=== PATIENT | male | born 1950 | race Two or more races ===

== ENCOUNTER 2017-10-15 21:48 | Inpatient (IN) | payer OTHER ==
[2017-10-15 22:07] VITALS: BMI 22.9
[2017-10-15] MEDS ORDERED: ACETAMINOPHEN 1000 MG/100 ML VIAL (NON FORMULARY) IVPB ONE (22:32)
--- NOTE | 2017-10-15 22:35 | PDOC ---
Attending Attestation - Resident Resident Name: FideliaNiesha - ED Attending Attestation I have performed the following: I have examined & evaluated the patient, The case was reviewed & discussed with the resident, I agree w/resident's findings & plan - HPI HPI: 10/15/17 22:34 Pt slipped and fell on the ice. Seems to have broken his hip. No head injury. - Physicial Exam PE: 10/15/17 22:34 Agree with resident exam. Pt's left leg is shortened and externally rotated. - Medical Decision Making 10/15/17 22:35 Pt will have pre-op workup and he will be admitted to med surg and ortho will be notified.
--- NOTE | 2017-10-15 22:39 | PDOC ---
History of Present Illness - General History Source: Patient Exam Limitations: No Limitations - History of Present Illness Initial Comments: This is a 67 YOM with h/o heavy alcohol use who was BIBA s/p GLF now with left hip pain. The patient states that he was attempting to walk to his car, slipped on ice, twisted his left leg, and fell onto his left knee and hip. He did not hit his head or lose consciousness, but he was unable to pick himself up after the fall. 911 was called to help him up and bring him to the ED, and they splinted his left knee in the process. The patient now states that he only has pain in the left lateral him (points) when he tries to move the leg. He was drinking alcohol shortly prior to the fall. He took Motrin this morning. He last ate a meal early this afternoon, takes no blood thinning medications, and has never had anesthesia or surgery before in his life. He denies any chest pain , palpitations, SOB, or dizziness preceding or subsequent to the fall. <Niesha Mistry - Last Filed: 10/15/17 22:33> <Sonal Palacios - Last Filed: 10/16/17 01:41> - General Chief Complaint: Injury Stated Complaint: FALL Time Seen by Provider: 10/15/17 22:19 Past History - Suicide/Smoking/Psychosocial Hx Smoking History: Unknown if ever smoked Information on smoking cessation initiated: No Hx Alcohol Use: No Drug/Substance Use Hx: No <MistryNiesha alves - Last Filed: 10/15/17 22:33> <Sonal Palacios - Last Filed: 10/16/17 01:41> - Past Medical History Allergies/Adverse Reactions: Allergies Allergy/AdvReac Type Severity Reaction Status Date / Time No Known Allergies Allergy Verified 10/15/17 23:30 Home Medications: Ambulatory Orders NK [No Known Home Medication] 10/15/17 Review of Systems - Review of Systems Able to Perform ROS?: Yes Constitutional: No: Chills, Fever, Unexplained wgt Loss HEENTM: No: Nose Congestion, Throat Pain Respiratory: No: Cough, Shortness of Breath Cardiac (ROS): No: Chest Pain, Palpitations, Syncope ABD/GI: No: Constipated, Diarrhea, Nausea, Vomiting : No: Burning, Dysuria Musculoskeletal: Yes: Other (left hip pain). No: Back Pain, Neck Pain Integumentary: No: Bruising, Rash Neurological: No: Headache, Numbness, Tingling, Weakness, Dizziness Endocrine: No: Unexplained Weight Gain, Unexplained Weight Loss <Niesha Mistry - Last Filed: 10/15/17 22:33> *Physical Exam - Vital Signs Last Vital Signs Temp Pulse Resp BP Pulse Ox 97.8 F 90 14 110/90 97 10/15/17 22:02 10/15/17 22:02 10/15/17 22:02 10/15/17 22:02 10/15/17 22:02 - Physical Exam General Appearance: Yes: Nourished, Appropriately Dressed, Other (pleasant older male in no distress, appears comfortable despite being in a LLE splint and with shortening and marked external rotation of the left leg, positive sense of humor sign, answers questions appropriately). No: Apparent Distress HEENT: positive: EOMI, GARRY, Normal Voice, Hearing Grossly Normal. negative: Scleral Icterus (R), Scleral Icterus (L), Nasal Congestion Neck: positive: Trachea midline, Supple. negative: Tender, Rigid Respiratory/Chest: positive: Lungs Clear, Normal Breath Sounds. negative: Respiratory Distress, Labored Respiration, Crackles, Rhonchi, Stridor, Wheezing Cardiovascular: positive: Regular Rhythm, Regular Rate. negative: Edema, Murmur Vascular Pulses: Dorsalis-Pedis (R): 2+, Doralis-Pedis (L): 2+ Gastrointestinal/Abdominal: positive: Normal Bowel Sounds, Flat, Soft. negative : Tender, Organomegaly, Pulsatile Mass, Guarding Musculoskeletal: positive: Normal Inspection. negative: Decreased Range of Motion, Vertebral Tenderness Extremity: positive: Normal Capillary Refill, Normal Inspection, Normal Range of Motion. negative: Tender, Cyanosis Integumentary: positive: Normal Color, Dry, Warm. negative: Erythema, Rash, Bruising Neurologic: positive: adjudication specialist II-XII NML intact (grossly), Fully Oriented, Alert, Normal Mood/Affect, Normal Response, Motor Strength 5/5, Finger to Nose (normal) . negative: EOM Palsy, Facial Droop, Numbness, Sensory Deficit, Confused, Disoriented <Niesha Mistry - Last Filed: 10/15/17 22:33> - Vital Signs Last Vital Signs Temp Pulse Resp BP Pulse Ox 97.8 F 90 14 110/90 97 10/15/17 22:02 10/15/17 22:02 10/15/17 22:02 10/15/17 22:02 10/15/17 22:02 <Sonal Palacios - Last Filed: 10/16/17 01:41> ED Treatment Course - RADIOLOGY Radiology Studies Ordered: Category Date Time Status CHEST X-RAY PORTABLE* [RAD] Stat Radiology 10/15/17 22:32 Ordered HIP & PELVIS-LEFT [RAD] Stat Radiology 10/15/17 22:32 Ordered KNEE 3 POS-LEFT [RAD] Stat Radiology 10/15/17 22:32 Ordered <Niesha Mistyr - Last Filed: 10/15/17 22:33> - LABORATORY CBC & Chemistry Diagram: 10/15/17 23:21 10/15/17 23:21 - ADDITIONAL ORDERS Additional order review: Laboratory Results 10/15/17 10/15/17 10/15/17 23:21 23:21 23:21 PT with INR INR PTT (Actin FS) Sodium 140 Potassium 4.0 Chloride 101 Carbon Dioxide 25 Anion Gap 14 BUN 7 Creatinine 0.9 Creat Clearance w eGFR > 60 Random Glucose 112 H Calcium 9.2 Phosphorus 2.8 Magnesium 2.0 Total Bilirubin 0.3 AST 23 ALT 16 Alkaline Phosphatase 87 Total Protein 7.8 Albumin 3.3 L Alcohol, Quantitative 227.7 H* Blood Type O POSITIVE Antibody Screen Negative 10/15/17 23:21 PT with INR 10.70 INR 0.95 PTT (Actin FS) 26.8 L Sodium Potassium Chloride Carbon Dioxide Anion Gap BUN Creatinine Creat Clearance w eGFR Random Glucose Calcium Phosphorus Magnesium Total Bilirubin AST ALT Alkaline Phosphatase Total Protein Albumin Alcohol, Quantitative Blood Type Antibody Screen 10/15/17 23:21 RBC 3.83 L MCV 103.8 H MCHC 33.0 RDW 14.2 MPV 8.0 Neutrophils % 75.4 Lymphocytes % 15.1 Monocytes % 7.0 Eosinophils % 1.5 Basophils % 1.0 <Sonal Palacios - Last Filed: 10/16/17 01:41> Medical Decision Making - Medical Decision Making 67 YOM with unremarkable PM p/w left hip pain s/p GLF. On exam VS wnl, appears comfortable, pelvis stable but mild ttp left lateral hip , LLE short/externally rotated. DDX IBNLT hip fracture/dislocation, pelvic fracture, knee fracture, contusion, sprain/strain, etc. Ordered is Ofirmev, IVF, CBCD, CMP, Mg, Phos, coags, TS, EKG, CXR, hip/pelvic XR , knee XR. <Niesha Mistry - Last Filed: 10/15/17 22:33> - Medical Decision Making 10/16/17 01:03 Pt fell on the ice; now with proximal femur fracture; Ortho was paged. No response at this time. 10/16/17 01:[address] Gómez who is aware of the spiral fracture of the proximal femur. <Sonal Palacios - Last Filed: 10/16/17 01:41> *DC/Admit/Observation/Transfer <Niesha Mistry - Last Filed: 10/15/17 22:33> - Discharge Dispostion Admit: Yes <Sonal Palacios - Last Filed: 10/16/17 01:41> Diagnosis at time of Disposition: Fracture, proximal femur - Discharge Dispostion Condition at time of disposition: Poor
[2017-10-15] MEDS ORDERED: SODIUM CHLORIDE 0.9% 1000 ML INFUS.BAG IV ONE (22:44)
[2017-10-15 23:30] LABS: EOS % 1.5 % (0-4.5); HEMATOCRIT 39.8 % (35.4-49); HEMOGLOBIN 13.1 GM/dL (11.7-16.9); LYMPH % 15.1 % (8-40); MCH 34.3 pg (25.7-33.7); MEAN CELL VOLUME 103.8 fl (80-96); NEUT % 75.4 % (42.8-82.8); PLATELET COUNT 317 K/MM3 (134-434); RBC 3.83 M/mm3 (4.00-5.60); RDW 14.2 % (11.9-15.9); WHITE BLOOD COUNT 7.8 K/mm3 (4.0-10.0)
[2017-10-15 23:43] LABS: INR 0.95 (0.82-1.09); PROTHROMBIN TIME (PATIENT) 10.7 SEC (9.98-11.88)
[2017-10-15 23:46] LABS: ACTIVATED PTT 26.8 SECONDS (26.9-34.4)
[2017-10-15 23:56] LABS: ALBUMIN 3.3 g/dl (3.4-5.0); ALK PHOS 87 U/L (45-117); ANION GAP 14 (8-16); BILIRUBIN,TOTAL 0.3 mg/dL (0.2-1.0); BLOOD UREA NITROGEN 7 mg/dL (7-18); CALCIUM 9.2 mg/dL (8.5-10.1); CHLORIDE 101 mmol/L (98-107); CO2 25 mmol/L (21-32); CREATININE 0.9 mg/dL (0.7-1.3); GLUCOSE,RANDOM 112 mg/dL (74-106); PHOSPHOROUS 2.8 mg/dL (2.5-4.9); SGPT/ALT 16 U/L (12-78); SODIUM 140 mmol/L (136-145); TOT PROT 7.8 g/dl (6.4-8.2)
[2017-10-16 00:02] LABS: SGOT/AST 23 U/L (15-37)
[2017-10-16] MEDS ORDERED: ACETAMINOPHEN 1000 MG/100 ML VIAL (NON FORMULARY) IVPB PRN ×2 (01:33→11:54)
--- NOTE | 2017-10-16 01:51 | HP ---
CHIEF COMPLAINT: fall PCP: HISTORY OF PRESENT ILLNESS: 67M w/ hx of gout and alcohol abuse who presents s/p mechanical fall. Pt reports that he was in his USOH until this evening when he was walking to his car from his house, and he slipped on ice, landing on his left side. He states that he hit his left hip, but not his knee or head. He denies LOC. He felt significant pain, could not stand up himself, and so his friends called for an ambulance. Pt states that right now, his leg only hurts when he moves it. Pt endorses drinking 8 shots of liquor earlier in the day, which he reports is his usual amount of daily alcohol. He denies feeling drunk or unsteady at the time of the fall. He denies fevers, chills, chest pain, headache, shortness of breath , abdominal pain, nausea, emesis, diarrhea, constipation, dysuria, numbness or tingling or weakness in his left foot. ER course was notable for: (1) physical exam (2) imaging Recent Travel: denies PAST MEDICAL HISTORY: gout PAST SURGICAL HISTORY: denies Social History: Smoking: quit 4 years ago, used to smoke 1.5 ppd x 44 years Alcohol: 7-8 shots of liquor every day for many years Drugs: denies Family History: non-contributory Allergies No Known Allergies Allergy (Verified 10/15/17 23:30) HOME MEDICATIONS: Home Medications Medication Instructions Recorded NK [No Known Home Medication] 10/15/17 REVIEW OF SYSTEMS CONSTITUTIONAL: Absent: fever, chills, diaphoresis, generalized weakness, malaise, loss of appetite, weight change HEENT: Absent: rhinorrhea, nasal congestion, throat pain, throat swelling, difficulty swallowing, mouth swelling, ear pain, eye pain, visual changes CARDIOVASCULAR: Absent: chest pain, syncope, palpitations, irregular heart rate, lightheadedness , peripheral edema RESPIRATORY: Absent: cough, shortness of breath, dyspnea with exertion, orthopnea, wheezing, stridor, hemoptysis GASTROINTESTINAL: Absent: abdominal pain, abdominal distension, nausea, vomiting, diarrhea, constipation, melena, hematochezia GENITOURINARY: Absent: dysuria, frequency, urgency, hesitancy, hematuria, flank pain, genital pain MUSCULOSKELETAL: Absent: back pain, neck pain present: left hip pain SKIN: Absent: rash, itching, pallor HEMATOLOGIC/IMMUNOLOGIC: Absent: easy bleeding, easy bruising, lymphadenopathy, frequent infections ENDOCRINE: Absent: unexplained weight gain, unexplained weight loss, heat intolerance, cold intolerance NEUROLOGIC: Absent: headache, focal weakness or paresthesias, dizziness, unsteady gait, seizure, mental status changes, bladder or bowel incontinence PSYCHIATRIC: Absent: anxiety, depression, suicidal or homicidal ideation, hallucinations. PHYSICAL EXAMINATION Vital Signs - 24 hr 10/15/17 22:02 Temperature 97.8 F Pulse Rate 90 Respiratory 14 Rate Blood Pressure 110/90 O2 Sat by Pulse 97 Oximetry (%) GENERAL: elderly male, awake, alert, and fully oriented, in no acute distress. HEENT: NC, AT NECK: Normal range of motion, supple without lymphadenopathy, JVD, or masses. LUNGS: Breath sounds equal, clear to auscultation bilaterally. No wheezes, and no crackles. No accessory muscle use. HEART: Regular rate and rhythm, normal S1 and S2 without murmur, rub or gallop. distal pulses in left leg intact. ABDOMEN: Soft, nontender, not distended, normoactive bowel sounds, no guarding, no rebound, no masses. No hepatomegaly or splenomegaly. MUSCULOSKELETAL: left leg is shorter than right and minimally externally rotated , tender to palpation on left hip, no tenderness to palpation of left knee NEUROLOGICAL: Cranial nerves II-XII intact. Normal speech. strength and sensory function intact in left foot PSYCHIATRIC: Cooperative. Good eye contact. Appropriate mood and affect. Laboratory Results - last 24 hr 10/15/17 10/15/17 10/15/17 23:21 23:21 23:21 WBC 7.8 RBC 3.83 L Hgb 13.1 Hct 39.8 MCV 103.8 H MCH 34.3 H MCHC 33.0 RDW 14.2 Plt Count 317 MPV 8.0 Neutrophils % 75.4 Lymphocytes % 15.1 Monocytes % 7.0 Eosinophils % 1.5 Basophils % 1.0 PT with INR 10.70 INR 0.95 PTT (Actin FS) 26.8 L Sodium 140 Potassium 4.0 Chloride 101 Carbon Dioxide 25 Anion Gap 14 BUN 7 Creatinine 0.9 Creat Clearance w eGFR > 60 Random Glucose 112 H Calcium 9.2 Phosphorus 2.8 Magnesium 2.0 Total Bilirubin 0.3 AST 23 ALT 16 Alkaline Phosphatase 87 Total Protein 7.8 Albumin 3.3 L Alcohol, Quantitative Blood Type Antibody Screen 10/15/17 10/15/17 23:21 23:21 WBC RBC Hgb Hct MCV MCH MCHC RDW Plt Count MPV Neutrophils % Lymphocytes % Monocytes % Eosinophils % Basophils % PT with INR INR PTT (Actin FS) Sodium Potassium Chloride Carbon Dioxide Anion Gap BUN Creatinine Creat Clearance w eGFR Random Glucose Calcium Phosphorus Magnesium Total Bilirubin AST ALT Alkaline Phosphatase Total Protein Albumin Alcohol, Quantitative 227.7 H* Blood Type O POSITIVE Antibody Screen Negative ASSESSMENT/PLAN: 67M w/ hx of gout and alcohol abuse who presents with left hip pain and inability to move left leg s/p mechanical fall. #fall leading to femur fracture -likely 2/2 slipping on ice vs. alcohol intoxication -pain control -NPO -ortho consulted, Dr. Sunshine, f/u recs -physical therapy -f/u hip XR and knee XR -hold AC for surgery #alcohol use -no signs of withdrawal at this time -librium taper if withdrawal occurs -counseled regarding cessation of alcohol #FEN/ppx -NS @ 75cc/hr -electrolytes wnl -NPO for surgery -no GI ppx indicated -SCD on right leg, no AC for surgery -Henok Solis MD PGY1 Visit type - Emergency Visit Emergency Visit: Yes ED Registration Date: 10/16/17 Care time: The patient presented to the Emergency Department on the above date and was hospitalized for further evaluation of their emergent condition. - New Patient This patient is new to me today: Yes Date on this admission: 10/16/17 - Critical Care Critical Care patient: No
[2017-10-16] MEDS: SODIUM CHLORIDE 1,000 ML IV SCH ×2 (01:55→13:29)
[2017-10-16 02:30] LABS: URINE APPEARANCE CLEAR; URINE BILIRUBIN NEGATIVE (NEGATIVE); URINE BLOOD 1+ (NEGATIVE); URINE COLOR STRAW; URINE GLUCOSE (UA) NEGATIVE (NEGATIVE); URINE KETONE NEGATIVE (NEGATIVE); URINE NITRITE NEGATIVE (NEGATIVE); URINE PROTEIN NEGATIVE (NEGATIVE); URINE UROBILINOGEN NEGATIVE mg/dL (0.2-1.0)
[2017-10-16 02:35] LABS: URINE LEUK ESTERASE 3+ (NEGATIVE)
[2017-10-16 02:40] LABS: EPI CELLS RARE /HPF (FEW); URINE MUCUS RARE
[2017-10-16] MEDS ORDERED: chlordiazePOXIDE HCL 25 MG CAPSULE PO PRN (03:55)
--- NOTE | 2017-10-16 05:39 | PN ---
Teaching Attending Note Name of Resident: Henok Solis ATTENDING PHYSICIAN STATEMENT I saw and evaluated the patient. Chart, data, imaging reviewed. I reviewed the resident's note and discussed the case with the resident. I agree with the resident's findings and plan as documented. SUBJECTIVE: 67Man w/ hx of gout and alcohol abuse s/p mechanical fall 10/15 after slipping on ice and landed on his left thigh. Patient denied trauma to head or LOC. Pt reported pain with movement of left lower extremity. He was not able to bear weight. Pt brought to ambulance and found to have left proximal femur fracture. He drinks 7 shots of liquor a day for several years. Denied alcohol withdrawal in the past. OBJECTIVE: Last Vital Signs Temp Pulse Resp BP Pulse Ox 98.1 F 80 20 100/70 99 10/16/17 04:06 10/16/17 04:06 10/16/17 04:06 10/16/17 04:06 10/16/17 04:13 General -NAD, AAox3, pleasant HEENT- atraumatic, moist mucous membranes, no scleral pallor Neck -supple, no jvd CV-s1+s+ RRR, no murmurs Chest- cta b/l, b/l air entry abdomen - soft, nt, no masses appreciated ext- no pedal edema, no clubbing or cyanosis Neuro- communicated fluently, no focal deficits , no asterixis ASSESSMENT AND PLAN: #spiral fracture of the left proximal femur s/p mechanical fall. 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 Gómez was made aware. -immobolization of left lower extremity -orthopedics consult -pain control -fall precautions #Alcoholism- no signs of withdrawal at the present time -thiamine, folate, multivitamin -CIWA protocol -Alcohol taper protocol with Librium -provided counseling on EtOH cessation #DVT ppx -heparin sc for DVT ppx
[2017-10-16] MEDS: HEPARIN NA (PORCINE) 5,000 UNITS/ML 1ML VIAL SQ SCH ×3 (06:10→21:32)
[2017-10-16] MEDS: chlordiazePOXIDE HCL 25 MG CAPSULE PO SCH ×4 (06:10→22:00)
[2017-10-16 07:54] LABS: BASO % 0.9 % (0-2.0); EOS % 0.3 % (0-4.5); HEMATOCRIT 32.1 % (35.4-49); HEMOGLOBIN 10.6 GM/dL (11.7-16.9); LYMPH % 22.4 % (8-40); MCH 34.4 pg (25.7-33.7); MCHC 33.1 g/dl (32.0-35.9); MEAN PLT VOLUME 7.8 fl (7.5-11.1); MONO % 12.3 % (3.8-10.2); NEUT % 64.1 % (42.8-82.8); PLATELET COUNT 265 K/MM3 (134-434); RBC 3.09 M/mm3 (4.00-5.60); RDW 14.3 % (11.9-15.9)
[2017-10-16 07:59] LABS: INR 1.01 (0.82-1.09); PROTHROMBIN TIME (PATIENT) 11.4 SEC (9.98-11.88)
[2017-10-16 08:02] LABS: ACTIVATED PTT 27.8 SECONDS (26.9-34.4)
[2017-10-16 08:46] LABS: ALBUMIN 2.8 g/dl (3.4-5.0); ANION GAP 12 (8-16); BLOOD UREA NITROGEN 6 mg/dL (7-18); CALCIUM 7.9 mg/dL (8.5-10.1); CHLORIDE 106 mmol/L (98-107); CO2 21 mmol/L (21-32); CREATININE 0.9 mg/dL (0.7-1.3); GLUCOSE,RANDOM 92 mg/dL (74-106); MAGNESIUM 1.8 mg/dL (1.8-2.4); PHOSPHOROUS 3.2 mg/dL (2.5-4.9); POTASSIUM 3.9 mmol/L (3.5-5.1); SGOT/AST 15 U/L (15-37); SGPT/ALT 13 U/L (12-78); SODIUM 139 mmol/L (136-145)
[2017-10-16 08:48] LABS: ALK PHOS 74 U/L (45-117); BILIRUBIN,TOTAL 0.4 mg/dL (0.2-1.0); TOT PROT 6.3 g/dl (6.4-8.2)
[2017-10-16] MEDS: FOLIC ACID 1 MG TABLET (FP) PO SCH (10:09)
[2017-10-16] MEDS: THIAMINE HCL 100 MG TABLET (FP) PO SCH (10:09)
--- NOTE | 2017-10-16 10:28 | EKG ---
Test Reason : Blood Pressure : / mmHG Vent. Rate : 085 BPM Atrial Rate : 085 BPM P-R Int : 150 ms QRS Dur : 094 ms QT Int : 392 ms P-R-T Axes : 077 060 060 degrees QTc Int : 466 ms NORMAL SINUS RHYTHM NORMAL ECG NO PREVIOUS ECGS AVAILABLE BASELINE ARTIFACT Confirmed by CLARENCE MAGUIRE, CASSIDY ([id number]) on 10/16/2017 10:27:41 AM Referred By: Confirmed By:CASSIDY LIMA MD
--- NOTE | 2017-10-16 12:00 | PN ---
Progress Note (short form) - Note Progress Note: Subjective: Mild l hip pain, responded to tylenol. no SOB. denies any h/o CAD, CHF, stroke, DM or any arrhythmias. Objective: Vital Signs: Last Vital Signs Temp Pulse Resp BP Pulse Ox 98.6 F 95 H 20 119/71 99 10/16/17 06:00 10/16/17 06:00 10/16/17 06:00 10/16/17 06:00 10/16/17 04:13 Laboratory Results - last 24 hr 10/15/17 10/15/17 10/15/17 23:21 23:21 23:21 WBC 7.8 RBC 3.83 L Hgb 13.1 Hct 39.8 MCV 103.8 H MCH 34.3 H MCHC 33.0 RDW 14.2 Plt Count 317 MPV 8.0 Neutrophils % 75.4 Lymphocytes % 15.1 Monocytes % 7.0 Eosinophils % 1.5 Basophils % 1.0 PT with INR 10.70 INR 0.95 PTT (Actin FS) 26.8 L Sodium 140 Potassium 4.0 Chloride 101 Carbon Dioxide 25 Anion Gap 14 BUN 7 Creatinine 0.9 Creat Clearance w eGFR > 60 Random Glucose 112 H Calcium 9.2 Phosphorus 2.8 Magnesium 2.0 Total Bilirubin 0.3 AST 23 ALT 16 Alkaline Phosphatase 87 Total Protein 7.8 Albumin 3.3 L Urine Color Urine Appearance Urine pH Ur Specific [place] Urine Protein Urine Glucose (UA) Urine Ketones Urine Blood Urine Nitrite Urine Bilirubin Urine Urobilinogen Urine WBC (Auto) Urine RBC (Auto) Ur Epithelial Cells Urine Mucus Alcohol, Quantitative Blood Type Antibody Screen 10/15/17 10/15/17 10/16/17 23:21 23:21 00:50 WBC RBC Hgb Hct MCV MCH MCHC RDW Plt Count MPV Neutrophils % Lymphocytes % Monocytes % Eosinophils % Basophils % PT with INR INR PTT (Actin FS) Sodium Potassium Chloride Carbon Dioxide Anion Gap BUN Creatinine Creat Clearance w eGFR Random Glucose Calcium Phosphorus Magnesium Total Bilirubin AST ALT Alkaline Phosphatase Total Protein Albumin Urine Color Urine Appearance Urine pH Ur Specific [place] Urine Protein Urine Glucose (UA) Urine Ketones Urine Blood Urine Nitrite Urine Bilirubin Urine Urobilinogen Urine WBC (Auto) Urine RBC (Auto) Ur Epithelial Cells Urine Mucus Alcohol, Quantitative 227.7 H* Blood Type O POSITIVE O POSITIVE Antibody Screen Negative 10/16/17 10/16/17 10/16/17 02:09 06:45 06:45 WBC 6.0 RBC 3.09 L Hgb 10.6 L D Hct 32.1 L D MCV 104.0 H MCH 34.4 H MCHC 33.1 RDW 14.3 Plt Count 265 MPV 7.8 Neutrophils % 64.1 Lymphocytes % 22.4 D Monocytes % 12.3 H Eosinophils % 0.3 Basophils % 0.9 PT with INR 11.40 INR 1.01 PTT (Actin FS) 27.8 Sodium Potassium Chloride Carbon Dioxide Anion Gap BUN Creatinine Creat Clearance w eGFR Random Glucose Calcium Phosphorus Magnesium Total Bilirubin AST ALT Alkaline Phosphatase Total Protein Albumin Urine Color Straw Urine Appearance Clear Urine pH 5.0 Ur Specific [place] 1.008 Urine Protein Negative Urine Glucose (UA) Negative Urine Ketones Negative Urine Blood 1+ H Urine Nitrite Negative Urine Bilirubin Negative Urine Urobilinogen Negative Urine WBC (Auto) 21 Urine RBC (Auto) 1 Ur Epithelial Cells Rare Urine Mucus Rare Alcohol, Quantitative Blood Type Antibody Screen 10/16/17 06:45 WBC RBC Hgb Hct MCV MCH MCHC RDW Plt Count MPV Neutrophils % Lymphocytes % Monocytes % Eosinophils % Basophils % PT with INR INR PTT (Actin FS) Sodium 139 Potassium 3.9 Chloride 106 Carbon Dioxide 21 Anion Gap 12 BUN 6 L Creatinine 0.9 Creat Clearance w eGFR > 60 Random Glucose 92 Calcium 7.9 L Phosphorus 3.2 Magnesium 1.8 Total Bilirubin 0.4 D AST 15 D ALT 13 Alkaline Phosphatase 74 Total Protein 6.3 L Albumin 2.8 L Urine Color Urine Appearance Urine pH Ur Specific [place] Urine Protein Urine Glucose (UA) Urine Ketones Urine Blood Urine Nitrite Urine Bilirubin Urine Urobilinogen Urine WBC (Auto) Urine RBC (Auto) Ur Epithelial Cells Urine Mucus Alcohol, Quantitative Blood Type Antibody Screen Physical Exam: NAD , MMM, symmetric face , tongue at mid line. EOMI Cv: RRR, no MRG , no JVD Lungs : CTAB ext: LLE shorter and slightly externally rotated. DP 2+ b/l . L thigh in a cast . no edema or erythema on RLE Abd: soft, NT, ND , NL BS. Assessment/Plan: 67 y/o lady with h/o Gout , alcohol dependence and no cardiac history who presented with L thigh pain after a fall. HE was found to have L femur Fx . 1- L femur Fx: - pain control , percocet + morphine if needed - DVT PX - NPO until evaluated by Sx . - gentle hydration - Pre-op risk stratification : this is an intermediate risk procedure. the pt himself , has no known h/o CHD, cAD, Arrthymias , DM or liver disease. He is suvolemic, no murmurs heard, EKG with NSR, and hemodynamically stable. his functional status indicated 4-10 METS given al this , the pt is considered low risk fro this intermediate risk procedure for any oswaldo-op cardiac complication . NO further cardiac w/u is indicated . 2- Alcohol dependence. - NO signs of withdrawal - cont Librium protocol 3- DVT PX Visit type - Emergency Visit Emergency Visit: Yes ED Registration Date: 10/16/17 Care time: The patient presented to the Emergency Department on the above date and was hospitalized for further evaluation of their emergent condition. - New Patient This patient is new to me today: Yes Date on this admission: 10/16/17 - Critical Care Critical Care patient: No
[2017-10-16] MEDS ORDERED: oxyCODONE HCL 5 MG TABLET PO PRN (12:37)
[2017-10-16] MEDS ORDERED: ACETAMINOPHEN 325 MG TABLET (FP) PO PRN (12:37)
[2017-10-16] MEDS: morphine CARPU-JECT 10 MG/1 ML DISP.SYRIN IVPUSH PRN (13:30)
--- NOTE | 2017-10-16 14:18 | PN ---
Progress Note (short form) - Note Progress Note: Pt seen and examined. He is a 67 yo Male s/p fall late yesterday, c/o pain in the left thigh.
--- NOTE | 2017-10-16 18:07 | PN ---
Progress Note (short form) - Note Progress Note: Pt is a 67 year old male s/p fall yesterday. C/o pain left thigh. Xrays done in the ER show a displaced left proximal femur fracture PE LLE is not deformed or shortened, + mild external rotation LLE NVI Good ROM at the left knee, ankle, foot, toes. Imp Left proximal femur fracture Rec Surgery - Left IM renuka/Long Gamma nail Medical clearance Surgery likely tomorrow
[2017-10-17] MEDS: SODIUM CHLORIDE 1,000 ML IV SCH ×2 (05:59→22:00)
[2017-10-17] MEDS: chlordiazePOXIDE HCL 25 MG CAPSULE PO SCH ×3 (06:00→17:44)
[2017-10-17] MEDS: HEPARIN NA (PORCINE) 5,000 UNITS/ML 1ML VIAL SQ SCH (06:00)
[2017-10-17] MEDS: morphine CARPU-JECT 10 MG/1 ML DISP.SYRIN IVPUSH PRN ×2 (08:34→13:55)
[2017-10-17 09:01] LABS: HEMATOCRIT 31.7 % (35.4-49); HEMOGLOBIN 10.4 GM/dL (11.7-16.9); MCH 34.4 pg (25.7-33.7); MCHC 32.7 g/dl (32.0-35.9); MEAN CELL VOLUME 105.2 fl (80-96); MEAN PLT VOLUME 7.9 fl (7.5-11.1); PLATELET COUNT 261 K/MM3 (134-434); RBC 3.01 M/mm3 (4.00-5.60); RDW 14.7 % (11.9-15.9); WHITE BLOOD COUNT 7.2 K/mm3 (4.0-10.0)
[2017-10-17 09:08] LABS: ADD RBC MORPHOLOGY YES
--- NOTE | 2017-10-17 09:59 | PN ---
Teaching Attending Note Name of Resident: Keyona Wolff ATTENDING PHYSICIAN STATEMENT I saw and evaluated the patient. I reviewed the resident's note and discussed the case with the resident. I agree with the resident's findings and plan as documented. SUBJECTIVE: no fever or chills, pain is controlled on pain meds. no SOB or CP , denies dysuria OBJECTIVE: NAD , MMM, symmetric face , tongue at mid line. EOMI Cv: RRR, no MRG , no JVD Lungs: CTAB Ext: LLE slightly externally rotated. DP 2+ b/l . L thigh in a cast . no edema or erythema on RLE Abd: soft, NT, ND , NL BS. Assessment/Plan: 67 y/o lady with h/o Gout , alcohol dependence and no cardiac history who presented with L thigh pain after a fall. HE was found to have L femur Fx . 1- L femur Fx: - pain control , percocet + morphine if needed - DVT PX , on hold today due to possible sx - NPO this am - gentle hydration , will dc after sx - Pre-op risk stratification : as per yesterday's Recs: low risk for this intermediate risk sx. No further cardiac or medical w/u indicated. 2- Alcohol dependence. - NO signs of withdrawal , am dose not given , will advise Rn to give - cont Librium protocol 3- Asymptomatic bacteruria , no indication for treatment with Abx 4- DVT PX on hold , will resume after sx PT after procedure , then rehab. pt is agreeable
[2017-10-17 10:13] LABS: ANISOCYTOSIS 1+; MACROCYTOSIS 1+
[2017-10-17] MEDS ORDERED: chlordiazePOXIDE HCL 25 MG CAPSULE PO ONE (10:15)
--- NOTE | 2017-10-17 10:19 | PN ---
Physical Exam: SUBJECTIVE: Patient seen and examined at bed side. Pain in the right two toes- second and third. Had received IV Morphine for pain control this am. Denies chest pain, sob, cough, palpitation, abdominal pain, nausea or vomiting. Bowel/Bladder habit normal. Sleep normal. No acute overnight events. No signs of withdrawal. OBJECTIVE: Vital Signs Period Temp Pulse Resp BP Sys/Cortez Pulse Ox Last 24 Hr 97.6 F-98.9 F 87-98 18-20 102-134/65-83 GENERAL: Patient is lying comfortably in bed, awake, alert, and fully oriented , in no acute distress. HEAD: Normal with no signs of trauma. EYES: EOM intact, no pallor or icterus. ENT: Ears normal, moist mucous membranes. NECK: Trachea midline, full range of motion, supple. LUNGS: Breath sounds equal, clear to auscultation bilaterally, no wheezes, no crackles, no accessory muscle use. HEART: Regular rate and rhythm, S1, S2 without murmur, rub or gallop. ABDOMEN: Soft, nontender, nondistended, normoactive bowel sounds, no guarding, no rebound, no hepatosplenomegaly, no masses. UPPER and RIGHT EXTREMITIES: 2+ pulses, warm, well-perfused, no edema. LEFT LOWER EXTREMITY: Tender to palpation in the left hip, no erythema, minimal swelling, left leg is shorter than right and minimally externally rotated, left distal pulse intact. NEUROLOGICAL: No facial droop, Cranial nerves II through XII grossly intact. Normal speech, gait not observed. PSYCH: Normal mood, normal affect. SKIN: Warm, dry, normal turgor, no rashes or lesions noted Laboratory Results - last 24 hr 10/16/17 10/17/17 02:09 07:45 WBC 7.2 RBC 3.01 L Hgb 10.4 L Hct 31.7 L MCV 105.2 H MCH 34.4 H MCHC 32.7 RDW 14.7 Plt Count 261 MPV 7.9 Platelet Comment No clumping noted Anisocytosis 1+ Macrocytosis 1+ Ur Leukocyte Esterase 1+ H Active Medications Generic Name Dose Route Start Last Admin Trade Name Freq PRN Reason Stop Dose Admin Acetaminophen 325 mg 10/16/17 12:37 Tylenol - PO 10/19/17 12:36 Q4H PRN PAIN Chlordiazepoxide HCl 25 mg 10/17/17 05:00 10/17/17 06:00 Librium - PO 10/17/17 23:01 Not Given [id number] [facility] Chlordiazepoxide HCl 15 mg 10/18/17 05:00 Librium - PO 10/18/17 23:01 [id number] [facility] Chlordiazepoxide HCl 25 mg 10/16/17 03:55 Librium - PO 10/19/17 03:54 Q4H PRN WITHDRAWAL(CONT SUBST) Folic Acid 1 mg 10/16/17 10:00 10/16/17 10:09 Folic Acid - PO 1 mg DAILY [facility] Administration Heparin Sodium (Porcine) 5,000 unit 10/16/17 06:00 10/17/17 06:00 Heparin - SQ Not Given TID [facility] Sodium Chloride 1,000 mls @ 75 mls/hr 10/16/17 01:45 10/17/17 05:59 Normal Saline - IV 75 mls/hr ASDIR [facility] Administration Morphine Sulfate 2 mg 10/16/17 11:53 10/17/17 08:34 Morphine Injection - IVPUSH 2 mg Q4H PRN Administration PAIN Oxycodone HCl 5 mg 10/16/17 12:37 Roxicodone - PO Q4H PRN PAIN Thiamine HCl 100 mg 10/16/17 10:00 10/16/17 10:09 Vitamin B1 - PO 100 mg DAILY [facility] Administration ASSESSMENT/PLAN: Patient is an 67 year old Male with significant past medical history of gout and alcohol abuse who presented to the ED with left hip pain and inability to move left leg s/p mechanical fall and was found to have Left femur fracture. # Left femur fracture secondary to mechanical fall due to alcohol intoxication Most likely Left IM renuka/ Long Gamma nail to be done today NPO IV NS @ 75 mls/hr Heparin on hold for possible surgery Dr. Gómez consult appreciated # Alcohol abuse On Librium protocol. Didn't receive AM dose this morning. Will tell RN to give the morning dose. No signs of withdrawal at this time. Thiamine 100mg PO daily Folic acid 1 tab PO Daily Alcohol cessation counseling. # Asymptomatic bacteuria Urine culture grew staph coagulase negative but denies urinary symptoms IV hydration Monitor off antibiotics #FEN IV NS @ 75mls/hr Electrolytes WNL NPO for possible surgery # Prophylaxis: For DVT: Heparin on hold for possible surgery today For GI: Not indicated Illness, Investigation and Plan of care explained to the patient. He verbalized understanding. Case discussed with Dr. Mann. Visit type - Emergency Visit Emergency Visit: Yes ED Registration Date: 10/16/17 Care time: The patient presented to the Emergency Department on the above date and was hospitalized for further evaluation of their emergent condition. - New Patient This patient is new to me today: Yes Date on this admission: 10/16/17 - Critical Care Critical Care patient: No - Discharge Referral Referred to [facility] Med P.C.: No
[2017-10-17] MEDS: THIAMINE HCL 100 MG TABLET (FP) PO SCH (10:23)
[2017-10-17] MEDS: FOLIC ACID 1 MG TABLET (FP) PO SCH (10:23)
[2017-10-17] MEDS ORDERED: ONDANSETRON 4 MG/2 ML VIAL IVPUSH PRN ×2 (17:19→20:52)
[2017-10-17] MEDS ORDERED: LACTATED RINGERS SOLUTION 1,000 ML IV SCH ×2 (17:30→20:52)
[2017-10-17] MEDS ORDERED: MIDAZOLAM HCL 2 MG/2 ML SINGLE DOSE VIAL ONE ×2 (17:54→19:47)
[2017-10-17] MEDS ORDERED: ceFAZolin SODIUM 1 GM VIAL ONE (18:30)
[2017-10-17] MEDS ORDERED: ceFAZolin SODIUM 1 GM VIAL IVPB ONE (18:34)
[2017-10-17] MEDS ORDERED: PROPOFOL 20 ML ONE (18:39)
[2017-10-17] MEDS ORDERED: ePHEDrine SULFATE 50 MG/1 ML AMPULE ONE (19:24)
--- NOTE | 2017-10-17 20:13 | OP ---
Operative Note - Note: Operative Date: 10/17/17 Pre-Operative Diagnosis: left femur fracture Operation: left femur ORIF with intramedullary nail/Gamma Nail Implants: [place] Gamma Nail 420mm, 95mm lag screw, 45mm distal screw Surgeon: Christ Gómez Anesthesiologist/CELL TUBER MACHINE: Ben Perez Anesthesia: Spinal, MAC Estimated Blood Loss (mls): 100 Drains, Volume Out (mls): 0 Blood Volume Replaced (mls): 0 Fluid Volume Replaced (mls): 1,000 Operative Report Dictated: Yes
--- NOTE | 2017-10-17 20:34 | SPEC ---
DATE OF OPERATION: 10/17/2017 OPERATION: Left femur long intramedullary nail/Gamma nail. PREOPERATIVE DIAGNOSIS: Comminuted left proximal femur fracture. POSTOPERATIVE DIAGNOSIS: Comminuted left proximal femur fracture. SURGEON: Alejandrina Donald M.D. ANESTHESIA: Spinal. BLOOD LOSS: 100 mL. BLOOD GIVEN: None. FLUID REPLACEMENT: 500 mL Plasmalyte. DRAINS: None. COMPLICATIONS: None. INDICATIONS: This patient is a 67-year-old male with a preoperative diagnosis of a comminuted left proximal femur fracture. Patient also has a very arthritic left hip. After understanding the potential risks, complications, alternatives, and benefits of surgery versus nonsurgical treatment, the patient elected to undergo this procedure. He understands that he may need additional surgery including left total hip replacement. He may need removal of hardware because of that. This and other potential risks and complications were discussed. The patient has elected to undergo this procedure. PROCEDURE: Patient was brought to the operating room. Peripheral IV placed, IV sedation given. One gram of IV Ancef was given. Spinal anesthesia was induced. The patient had ample Webril placed around the peroneal post in both ankles. The patient was placed onto the fracture table with a slight longitudinal traction and internal rotation. X-rays were taken documenting excellent reduction of the fracture in the AP and lateral planes. The area was then prepped and draped in the sterile fashion. Next, an incision was made over the proximal aspect of the greater trochanter. Subcutaneous hemostasis was achieved with a Bovie cautery, dissection done through the lateral fascia to the top of the greater trochanter. A Noble elevator was used to take off the soft tissue from the starting point. Under direct visualization a partially threaded guide-wire was placed through the standard starting position, into the proximal femur, passed the fracture fragment into the medullary canal. It was documented to be in excellent position in AP, lateral and multiple oblique planes. Next, we used the proximal 17 mm cannulated reamer and put in a long titanium Jason Gamma 3 125 degree, 420 mm trochanteric nail. This was put in cannulated fashion to appropriate depth and using the external guide in a standard fashion, first using external jig, using a threaded guide-wire, replaced the lag screw, guide pin to the lateral aspect of the femur. The prosthesis and up to the femoral neck and head, looked to be in excellent position in a center central position, perhaps slightly posterior and slightly inferior in both AP and lateral planes. We measured it at an 95 mm screw. The cannulated drill was used to drill it to this leg and then we put in an 95 mm titanium lag screw. We achieved excellent compression and overall the position of the hardware in the fracture fragments looked excellent. We locked it in place with a proximal set screw, we altered the external jig to the static position and using the "perfect circles" technique put in a distal interlocking screw of 45 mm in length. This locked the nail distally. We removed the external jig. We repeated x-rays in AP, lateral and multiple oblique planes and overall I was quite happy with the position of the fracture reduction, the length of the screw, the position of the hardware. Final x-rays were taken. The area was copiously irrigated and washed out. The deep fascial layer was closed with 0 Vicryl sutures. The deep dermal layer was closed with 2-0 Vicryl. Final skin approximation was done with kuldip. The area was then washed and dried, covered with Xeroform gauze, 4 x 4 gauze, ABD and tape. Patient was taken down off the fracture table in stable condition. There were no complications during the case. Total operative time was about one hour. The patient was brought to the regular recovery room in stable condition. ALEJANDRINA DONALD M.D. [id number]
[2017-10-17] MEDS ORDERED: chlordiazePOXIDE HCL 25 MG CAPSULE PO PRN (20:52)
[2017-10-17] MEDS ORDERED: morphine CARPU-JECT 10 MG/1 ML DISP.SYRIN IVPUSH PRN (20:52)
[2017-10-17] MEDS ORDERED: HEPARIN NA (PORCINE) 5,000 UNITS/ML 1ML VIAL SQ SCH (22:00)
[2017-10-17] MEDS ORDERED: chlordiazePOXIDE HCL 25 MG CAPSULE PO SCH (23:00)
[2017-10-18] MEDS ORDERED: ACETAMINOPHEN 325 MG TABLET (FP) PO PRN (03:58)
[2017-10-18] MEDS ORDERED: chlordiazePOXIDE 5 MG CAPSULE PO SCH (05:00)
[2017-10-18] MEDS: chlordiazePOXIDE 5 MG CAPSULE PO SCH ×4 (05:24→22:52)
--- NOTE | 2017-10-18 08:48 | PN ---
Progress Note (short form) - Note Progress Note: Anesthesia Post Op Pt seen and examined S:alert and awake O: Vital Signs Temperature 97.7 F 10/18/17 06:00 Pulse Rate 110 H 10/18/17 06:00 Respiratory Rate 20 10/18/17 06:00 Blood Pressure 138/70 10/18/17 06:00 O2 Sat by Pulse Oximetry (%) 94 L 10/17/17 22:57 CBC, BMP 10/17/17 07:45 10/16/17 06:45 A/P;s/p left leg gamma nail Fracture, proximal femur (Acute) doing well post op Continue current care Saw Arriaga MD
[2017-10-18 09:16] LABS: HEMATOCRIT 27.8 % (35.4-49); HEMOGLOBIN 9.1 GM/dL (11.7-16.9); MCH 34.3 pg (25.7-33.7); MCHC 32.8 g/dl (32.0-35.9); MEAN CELL VOLUME 104.7 fl (80-96); MEAN PLT VOLUME 8.3 fl (7.5-11.1); PLATELET COUNT 233 K/MM3 (134-434); RBC 2.65 M/mm3 (4.00-5.60); RDW 14.4 % (11.9-15.9); WHITE BLOOD COUNT 6.2 K/mm3 (4.0-10.0)
[2017-10-18 09:45] LABS: ANION GAP 8 (8-16); BLOOD UREA NITROGEN 5 mg/dL (7-18); CALCIUM 7.8 mg/dL (8.5-10.1); CHLORIDE 104 mmol/L (98-107); CO2 25 mmol/L (21-32); CREATININE 0.9 mg/dL (0.7-1.3); GLUCOSE,RANDOM 115 mg/dL (74-106); POTASSIUM 3.4 mmol/L (3.5-5.1); SODIUM 137 mmol/L (136-145)
[2017-10-18] MEDS: THIAMINE HCL 100 MG TABLET (FP) PO SCH (09:53)
[2017-10-18] MEDS: FOLIC ACID 1 MG TABLET (FP) PO SCH (09:54)
[2017-10-18] MEDS: SODIUM CHLORIDE 1,000 ML IV SCH (10:38)
[2017-10-18] MEDS: oxyCODONE HCL 5 MG TABLET PO PRN ×2 (10:42→17:35)
[2017-10-18] MEDS: ACETAMINOPHEN 325 MG TABLET (FP) PO PRN ×2 (10:42→17:34)
--- NOTE | 2017-10-18 19:16 | PN ---
Teaching Attending Note Name of Resident: Henok Solis ATTENDING PHYSICIAN STATEMENT I saw and evaluated the patient. I reviewed the resident's note and discussed the case with the resident. I agree with the resident's findings and plan as documented. Assessment/Plan: 67 y/o gentleman with h/o Gout , alcohol dependence and no cardiac history who presented with L thigh pain after a fall. HE was found to have L femur Fx . 1- L femur Fx: s/p ORIF - pain control , percocet . dc morphine - start DVT px - dc IVF 2- Alcohol dependence. - NO signs of withdrawal - cont Librium protocol 3- Asymptomatic bacteruria , no indication for treatment with Abx Needs rehab, will be ready on tuesday after finishing his detox
--- NOTE | 2017-10-18 22:07 | PN ---
Physical Exam: SUBJECTIVE: Patient seen and examined. Pt reports that left leg pain is 5/10. He denies chest pain, SOB, abdominal pain , n/v/d/c, and dysuria. OBJECTIVE: Vital Signs Period Temp Pulse Resp BP Sys/Cortez Pulse Ox Last 24 Hr 97.4 F-100.8 F 97-115 20-20 109-153/65-83 94 GENERAL: The patient is awake, alert, and fully oriented, in no acute distress. HEENT: NC, AT NECK: Trachea midline, full range of motion, supple. LUNGS: Breath sounds equal, clear to auscultation bilaterally, no wheezes, no crackles, no accessory muscle use. HEART: Regular rate and rhythm, S1, S2 without murmur, rub or gallop. ABDOMEN: Soft, nontender, nondistended, normoactive bowel sounds, no guarding, no rebound, no hepatosplenomegaly, no masses. EXTREMITIES: left lateral leg is tender to palpation around site of incision. NEUROLOGICAL: left leg has normal sensation and strength Laboratory Results - last 24 hr 10/18/17 10/18/17 08:11 08:11 WBC 6.2 RBC 2.65 L Hgb 9.1 L D Hct 27.8 L MCV 104.7 H MCH 34.3 H MCHC 32.8 RDW 14.4 Plt Count 233 MPV 8.3 Sodium 137 Potassium 3.4 L Chloride 104 Carbon Dioxide 25 Anion Gap 8 BUN 5 L Creatinine 0.9 Random Glucose 115 H D Calcium 7.8 L Active Medications Generic Name Dose Route Start Last Admin Trade Name Freq PRN Reason Stop Dose Admin Acetaminophen 325 mg 10/17/17 20:52 10/18/17 17:34 Tylenol - PO 10/19/17 12:36 325 mg Q4H PRN Administration PAIN Chlordiazepoxide HCl 25 mg 10/17/17 20:52 Librium - PO 10/19/17 03:54 Q4H PRN WITHDRAWAL(CONT SUBST) Chlordiazepoxide HCl 15 mg 10/18/17 05:00 10/18/17 17:04 Librium - PO 10/18/17 23:01 15 mg [id number] [facility] Administration Chlordiazepoxide HCl 10 mg 10/19/17 23:01 Librium - PO 10/20/17 17:01 [id number] [place] Diphenhydramine HCl 25 mg 10/17/17 22:07 10/17/17 20:24 Benadryl Injection - IVPUSH 25 mg ONCE PRN Administration FOR ITCHING Folic Acid 1 mg 10/18/17 10:00 10/18/17 09:54 Folic Acid - PO 1 mg DAILY [facility] Administration Heparin Sodium (Porcine) 5,000 unit 10/18/17 22:00 Heparin - SQ TID [facility] Ondansetron HCl 4 mg 10/17/17 20:52 Zofran Injection IVPUSH Q6H PRN NAUSEA AND/OR VOMITING Oxycodone HCl 5 mg 10/17/17 20:52 10/18/17 17:35 Roxicodone - PO 5 mg Q4H PRN Administration PAIN Thiamine HCl 100 mg 10/18/17 10:00 10/18/17 09:53 Vitamin B1 - PO 100 mg DAILY [facility] Administration ASSESSMENT/PLAN: 67M w/ hx of gout and alcohol abuse who presented with left hip pain and inability to move left leg s/p mechanical fall, and was found to have a proximal femur fracture, now s/p ORIF. #fall leading to femur fracture -likely 2/2 slipping on ice vs. alcohol intoxication -s/p ORIF -changed to po pain control only -physical therapy -advance diet as toleratd #alcohol use -no signs of withdrawal at this time -librium taper -counseled regarding cessation of alcohol #FEN/ppx -NS @ 75cc/hr -replete K -soft diet -no GI ppx indicated -heparin #Dispo -awaiting placement in SNF -Henok Solis MD PGY1 Visit type - Emergency Visit Emergency Visit: Yes ED Registration Date: 10/16/17 Care time: The patient presented to the Emergency Department on the above date and was hospitalized for further evaluation of their emergent condition. - New Patient This patient is new to me today: No - Critical Care Critical Care patient: No
[2017-10-18] MEDS: HEPARIN NA (PORCINE) 5,000 UNITS/ML 1ML VIAL SQ SCH (22:51)
[2017-10-19] MEDS: HEPARIN NA (PORCINE) 5,000 UNITS/ML 1ML VIAL SQ SCH (05:45)
[2017-10-19] MEDS: oxyCODONE HCL 5 MG TABLET PO PRN ×2 (07:00→19:48)
[2017-10-19] MEDS: ACETAMINOPHEN 325 MG TABLET (FP) PO PRN (07:00)
[2017-10-19 09:32] LABS: BASO % 0.5 % (0-2.0); EOS % 2.5 % (0-4.5); HEMATOCRIT 23.3 % (35.4-49); HEMOGLOBIN 7.7 GM/dL (11.7-16.9); LYMPH % 19.5 % (8-40); MCH 34.5 pg (25.7-33.7); MEAN CELL VOLUME 104.5 fl (80-96); MEAN PLT VOLUME 8.4 fl (7.5-11.1); MONO % 9.9 % (3.8-10.2); NEUT % 67.6 % (42.8-82.8); PLATELET COUNT 228 K/MM3 (134-434); RBC 2.23 M/mm3 (4.00-5.60); RDW 14.8 % (11.9-15.9); WHITE BLOOD COUNT 7.9 K/mm3 (4.0-10.0)
[2017-10-19 09:47] LABS: ALBUMIN 2.2 g/dl (3.4-5.0); ANION GAP 8 (8-16); BLOOD UREA NITROGEN 6 mg/dL (7-18); CALCIUM 7.5 mg/dL (8.5-10.1); CHLORIDE 107 mmol/L (98-107); CO2 25 mmol/L (21-32); GLUCOSE,RANDOM 102 mg/dL (74-106); POTASSIUM 3.3 mmol/L (3.5-5.1); SODIUM 140 mmol/L (136-145)
[2017-10-19 09:51] LABS: ALK PHOS 59 U/L (45-117); BILIRUBIN,TOTAL 0.6 mg/dL (0.2-1.0); CREATININE 0.9 mg/dL (0.7-1.3); SGOT/AST 31 U/L (15-37); SGPT/ALT 15 U/L (12-78); TOT PROT 5.4 g/dl (6.4-8.2)
--- NOTE | 2017-10-19 10:01 | PN ---
Progress Note (short form) - Note Progress Note: Ortho Pt seen and examined s/p left IM gamma nail Selected Entries 10/19/17 06:00 Temperature 99.6 F Pulse Rate 110 H Respiratory 20 Rate Blood Pressure 164/90 Laboratory Tests 10/19/17 08:15 WBC 7.9 Hgb 7.7 L D Hct 23.3 L D Plt Count 228 dressing c/d/i, calf soft, nt nvi a/p monitor h/h PT dvt ppx pain control d/c planning
[2017-10-19] MEDS: THIAMINE HCL 100 MG TABLET (FP) PO SCH (10:18)
[2017-10-19] MEDS: FOLIC ACID 1 MG TABLET (FP) PO SCH (10:18)
--- NOTE | 2017-10-19 15:31 | PN ---
Teaching Attending Note Name of Resident: Henok Solis ATTENDING PHYSICIAN STATEMENT I saw and evaluated the patient. I reviewed the resident's note and discussed the case with the resident. I agree with the resident's findings and plan as documented. SUBJECTIVE: Patient is comfortable with no acute distress, no shortness of breath, denies having any pain at this time. OBJECTIVE: Vital Signs Temperature 99.1 F 10/19/17 15:23 Pulse Rate 103 H 10/19/17 15:23 Respiratory Rate 20 10/19/17 15:23 Blood Pressure 150/66 10/19/17 15:23 O2 Sat by Pulse Oximetry (%) 94 L 10/19/17 14:49 CBCD WBC 7.9 K/mm3 (4.0-10.0) 10/19/17 08:15 RBC 2.23 M/mm3 (4.00-5.60) L 10/19/17 08:15 Hgb 7.7 GM/dL (11.7-16.9) L D 10/19/17 08:15 Hct 23.3 % (35.4-49) L D 10/19/17 08:15 MCV 104.5 fl (80-96) H 10/19/17 08:15 MCHC 33.0 g/dl (32.0-35.9) 10/19/17 08:15 RDW 14.8 % (11.9-15.9) 10/19/17 08:15 Plt Count 228 K/MM3 (134-434) 10/19/17 08:15 MPV 8.4 fl (7.5-11.1) 10/19/17 08:15 CMP Sodium 140 mmol/L (136-145) 10/19/17 08:15 Potassium 3.3 mmol/L (3.5-5.1) L 10/19/17 08:15 Chloride 107 mmol/L (98-107) 10/19/17 08:15 Carbon Dioxide 25 mmol/L (21-32) 10/19/17 08:15 Anion Gap 8 (8-16) 10/19/17 08:15 BUN 6 mg/dL (7-18) L 10/19/17 08:15 Creatinine 0.9 mg/dL (0.7-1.3) 10/19/17 08:15 Creat Clearance w eGFR > 60 (>60) 10/19/17 08:15 Random Glucose 102 mg/dL (74-106) 10/19/17 08:15 Calcium 7.5 mg/dL (8.5-10.1) L 10/19/17 08:15 Total Bilirubin 0.6 mg/dL (0.2-1.0) D 10/19/17 08:15 AST 31 U/L (15-37) D 10/19/17 08:15 ALT 15 U/L (12-78) 10/19/17 08:15 Alkaline Phosphatase 59 U/L (45-117) D 10/19/17 08:15 Total Protein 5.4 g/dl (6.4-8.2) L 10/19/17 08:15 Albumin 2.2 g/dl (3.4-5.0) L D 10/19/17 08:15 Current Medications Generic Name Dose Route Start Last Admin Trade Name Freq PRN Reason Stop Dose Admin Chlordiazepoxide HCl 10 mg 10/19/17 23:01 Librium - PO 10/20/17 17:01 [id number] [place] Diphenhydramine HCl 25 mg 10/17/17 22:07 10/17/17 20:24 Benadryl Injection - IVPUSH 25 mg ONCE PRN Administration FOR ITCHING Folic Acid 1 mg 10/18/17 10:00 10/19/17 10:18 Folic Acid - PO 1 mg DAILY [facility] Administration Ondansetron HCl 4 mg 10/17/17 20:52 Zofran Injection IVPUSH Q6H PRN NAUSEA AND/OR VOMITING Oxycodone HCl 5 mg 10/17/17 20:52 10/19/17 07:00 Roxicodone - PO 5 mg Q4H PRN Administration PAIN Thiamine HCl 100 mg 10/18/17 10:00 10/19/17 10:18 Vitamin B1 - PO 100 mg DAILY [facility] Administration PE: per resident's note ASSESSMENT AND PLAN: Patient is a 67 y/o gentleman with h/o Gout , alcohol dependence and no cardiac history who presented with L thigh pain after a fall. and was found to have L femur Fx . # Acute L femur Fx: s/p ORIF , on pain med., percocet # Alcohol dependence ,patient has no signs of withdrawal cont Librium protocol for one more day # Asymptomatic bacteruria , no indication for treatment with Abx To rehab, in am since the last day in am
--- NOTE | 2017-10-19 16:00 | PN ---
Physical Exam: SUBJECTIVE: Patient seen and examined. No acute events overnight. Pt reports that leg pain is improved compared to yesterday. He denies shortness of breath, chest pain, abdominal pain, n/v/d/c, and dysuria. OBJECTIVE: Vital Signs Period Temp Pulse Resp BP Sys/Cortez Pulse Ox Last 24 Hr 98.7 F-99.6 F 86-110 20-20 128-164/65-90 94-94 GENERAL: The patient is awake, alert, and fully oriented, in no acute distress. HEENT: NC, AT NECK: Trachea midline, full range of motion, supple. LUNGS: Breath sounds equal, clear to auscultation bilaterally, no wheezes, no crackles, no accessory muscle use. HEART: Regular rate and rhythm, S1, S2 without murmur, rub or gallop. ABDOMEN: Soft, nontender, nondistended, normoactive bowel sounds, no guarding, no rebound, no hepatosplenomegaly, no masses. EXTREMITIES: left lateral leg is tender to palpation around site of incision. NEUROLOGICAL: left leg has normal sensation and strength Laboratory Results - last 24 hr 10/19/17 10/19/17 08:15 08:15 WBC 7.9 RBC 2.23 L Hgb 7.7 L D Hct 23.3 L D MCV 104.5 H MCH 34.5 H MCHC 33.0 RDW 14.8 Plt Count 228 MPV 8.4 Neutrophils % 67.6 Lymphocytes % 19.5 Monocytes % 9.9 Eosinophils % 2.5 D Basophils % 0.5 Sodium 140 Potassium 3.3 L Chloride 107 Carbon Dioxide 25 Anion Gap 8 BUN 6 L Creatinine 0.9 Creat Clearance w eGFR > 60 Random Glucose 102 Calcium 7.5 L Total Bilirubin 0.6 D AST 31 D ALT 15 Alkaline Phosphatase 59 D Total Protein 5.4 L Albumin 2.2 L D Active Medications Generic Name Dose Route Start Last Admin Trade Name Freq PRN Reason Stop Dose Admin Chlordiazepoxide HCl 10 mg 10/19/17 23:01 Librium - PO 10/20/17 17:01 [id number] [facility] Diphenhydramine HCl 25 mg 10/17/17 22:07 10/17/17 20:24 Benadryl Injection - IVPUSH 25 mg ONCE PRN Administration FOR ITCHING Folic Acid 1 mg 10/18/17 10:00 10/19/17 10:18 Folic Acid - PO 1 mg DAILY [facility] Administration Ondansetron HCl 4 mg 10/17/17 20:52 Zofran Injection IVPUSH Q6H PRN NAUSEA AND/OR VOMITING Oxycodone HCl 5 mg 10/17/17 20:52 10/19/17 07:00 Roxicodone - PO 5 mg Q4H PRN Administration PAIN Thiamine HCl 100 mg 10/18/17 10:00 10/19/17 10:18 Vitamin B1 - PO 100 mg DAILY [facility] Administration ASSESSMENT/PLAN: 67M w/ hx of gout and alcohol abuse who presented with left hip pain and inability to move left leg s/p mechanical fall, and was found to have a proximal femur fracture, now s/p ORIF. #fall leading to femur fracture -likely 2/2 slipping on ice vs. alcohol intoxication -s/p ORIF -continue po pain control -physical therapy -advance diet as tolerated #anemia -Hgb of 7.7 today. No obvious signs of bleeding or hematoma around site of fracture. -f/u repeat CBC #alcohol use -no signs of withdrawal at this time -librium taper -counseled regarding cessation of alcohol #FEN/ppx -no fluids -replete K -soft diet -no GI ppx indicated -heparin discontinued due to low Hgb #Dispo -awaiting placement in SNF Case discussed with attending, Dr. Smith -Henok Solis MD PGY1 Visit type - Emergency Visit Emergency Visit: Yes ED Registration Date: 10/16/17 Care time: The patient presented to the Emergency Department on the above date and was hospitalized for further evaluation of their emergent condition. - New Patient This patient is new to me today: No - Critical Care Critical Care patient: No
[2017-10-19 18:10] LABS: HEMATOCRIT 23.6 % (35.4-49); HEMOGLOBIN 7.8 GM/dL (11.7-16.9); MCH 34.5 pg (25.7-33.7); MCHC 33.2 g/dl (32.0-35.9); MEAN CELL VOLUME 103.9 fl (80-96); MEAN PLT VOLUME 8.4 fl (7.5-11.1); PLATELET COUNT 262 K/MM3 (134-434); RBC 2.27 M/mm3 (4.00-5.60); RDW 14.6 % (11.9-15.9); WHITE BLOOD COUNT 6.9 K/mm3 (4.0-10.0)
[2017-10-19] MEDS: chlordiazePOXIDE 5 MG CAPSULE PO SCH (23:25)
[2017-10-20] MEDS: chlordiazePOXIDE 5 MG CAPSULE PO SCH ×3 (05:07→16:05)
[2017-10-20] MEDS: oxyCODONE HCL 5 MG TABLET PO PRN (06:54)
[2017-10-20 08:39] LABS: HEMATOCRIT 22.5 % (35.4-49); HEMOGLOBIN 7.5 GM/dL (11.7-16.9); MCH 34.6 pg (25.7-33.7); MCHC 33.1 g/dl (32.0-35.9); MEAN CELL VOLUME 104.4 fl (80-96); MEAN PLT VOLUME 8.5 fl (7.5-11.1); PLATELET COUNT 237 K/MM3 (134-434); RBC 2.16 M/mm3 (4.00-5.60); RDW 14.3 % (11.9-15.9); WHITE BLOOD COUNT 6.9 K/mm3 (4.0-10.0)
[2017-10-20 09:18] LABS: ALBUMIN 2.1 g/dl (3.4-5.0); ALK PHOS 64 U/L (45-117); ANION GAP 9 (8-16); BILIRUBIN,TOTAL 0.5 mg/dL (0.2-1.0); BLOOD UREA NITROGEN 6 mg/dL (7-18); CALCIUM 8.3 mg/dL (8.5-10.1); CHLORIDE 107 mmol/L (98-107); CO2 25 mmol/L (21-32); GLUCOSE,RANDOM 96 mg/dL (74-106); POTASSIUM 3.3 mmol/L (3.5-5.1); SGOT/AST 32 U/L (15-37); SGPT/ALT 19 U/L (12-78); SODIUM 141 mmol/L (136-145)
[2017-10-20 09:20] LABS: TOT PROT 5.6 g/dl (6.4-8.2)
[2017-10-20] MEDS: THIAMINE HCL 100 MG TABLET (FP) PO SCH (09:36)
[2017-10-20] MEDS: FOLIC ACID 1 MG TABLET (FP) PO SCH (09:36)
[2017-10-20] MEDS ORDERED: POTASSIUM CHLORIDE TABS 20 MEQ TABLET.ER (FP) PO ONE ×2 (09:46→14:46)
--- NOTE | 2017-10-20 11:17 | PN ---
Physical Exam: SUBJECTIVE: Patient seen and examined No acute events overnight. Pt is distressed over number of blood draws taken yesterday. Explained to pt that we were concerned about his low Hgb. He states that his pain in his leg is well controlled, no other subjective complaints. OBJECTIVE: Vital Signs Period Temp Pulse Resp BP Sys/Cortez Pulse Ox Last 24 Hr 98.0 F-99.8 F 86-109 14-20 90-150/53-71 94-95 GENERAL: The patient is awake, alert, and fully oriented, in no acute distress. HEENT: NC, AT NECK: Trachea midline, full range of motion, supple. LUNGS: Breath sounds equal, clear to auscultation bilaterally, no wheezes, no crackles, no accessory muscle use. HEART: Regular rate and rhythm, S1, S2 without murmur, rub or gallop. ABDOMEN: Soft, nontender, nondistended, normoactive bowel sounds, no guarding, no rebound, no hepatosplenomegaly, no masses. EXTREMITIES: left lateral leg is minimally tender to palpation around site of incision. NEUROLOGICAL: left leg has normal sensation and strength Laboratory Results - last 24 hr 10/19/17 10/19/17 10/20/17 17:00 23:54 08:15 WBC 6.9 6.9 RBC 2.27 L 2.16 L Hgb 7.8 L 7.5 L Hct 23.6 L 22.5 L MCV 103.9 H 104.4 H MCH 34.5 H 34.6 H MCHC 33.2 33.1 RDW 14.6 14.3 Plt Count 262 237 MPV 8.4 8.5 Sodium Potassium Chloride Carbon Dioxide Anion Gap BUN Creatinine Creat Clearance w eGFR Random Glucose Calcium Total Bilirubin AST ALT Alkaline Phosphatase Total Protein Albumin Blood Type O POSITIVE Antibody Screen Negative 10/20/17 08:15 WBC RBC Hgb Hct MCV MCH MCHC RDW Plt Count MPV Sodium 141 Potassium 3.3 L Chloride 107 Carbon Dioxide 25 Anion Gap 9 BUN 6 L Creatinine 1.0 Creat Clearance w eGFR > 60 Random Glucose 96 Calcium 8.3 L Total Bilirubin 0.5 AST 32 ALT 19 D Alkaline Phosphatase 64 Total Protein 5.6 L Albumin 2.1 L Blood Type Antibody Screen Active Medications Generic Name Dose Route Start Last Admin Trade Name Freq PRN Reason Stop Dose Admin Chlordiazepoxide HCl 10 mg 10/19/17 23:01 01/04/18 10:06 Librium - PO 10/20/17 17:01 10 mg [id number] [place] Administration Diphenhydramine HCl 25 mg 10/17/17 22:07 10/17/17 20:24 Benadryl Injection - IVPUSH 25 mg ONCE PRN Administration FOR ITCHING Folic Acid 1 mg 10/18/17 10:00 10/20/17 09:36 Folic Acid - PO 1 mg DAILY [facility] Administration Ondansetron HCl 4 mg 10/17/17 20:52 Zofran Injection IVPUSH Q6H PRN NAUSEA AND/OR VOMITING Oxycodone HCl 5 mg 10/17/17 20:52 10/20/17 06:54 Roxicodone - PO 5 mg Q4H PRN Administration PAIN Potassium Chloride 40 meq 10/20/17 14:46 K-Dur - PO 10/20/17 14:47 ONCE ONE Thiamine HCl 100 mg 10/18/17 10:00 10/20/17 09:36 Vitamin B1 - PO 100 mg DAILY [facility] Administration ASSESSMENT/PLAN: 67M w/ hx of gout and alcohol abuse who presented with left hip pain and inability to move left leg s/p mechanical fall, and was found to have a proximal femur fracture, now s/p ORIF. #fall leading to femur fracture -likely 2/2 slipping on ice vs. alcohol intoxication -s/p ORIF -continue po pain control -physical therapy -advance diet as tolerated #anemia -Hgb of 7.5 today. No obvious signs of bleeding or hematoma around site of fracture. platelets and coags normal -monitor Hgb -heparin discontinued yesterday #alcohol use -no signs of withdrawal at this time -finishing librium taper tonight -counseled regarding cessation of alcohol #FEN/ppx -no fluids -replete K -soft diet -no GI ppx indicated -heparin discontinued due to low Hgb #Dispo -pt accepted to two SNFs. Pt medically cleared for discharge. Case discussed with attending, Dr. Sarah Solsi MD PGY1 Visit type - Emergency Visit Emergency Visit: Yes ED Registration Date: 10/16/17 Care time: The patient presented to the Emergency Department on the above date and was hospitalized for further evaluation of their emergent condition. - New Patient This patient is new to me today: No - Critical Care Critical Care patient: No
[2017-10-20] MEDS ORDERED: ACETAMINOPHEN 325 MG TABLET (FP) PO PRN (13:28)
[2017-10-20] MEDS ORDERED: HEPARIN NA (PORCINE) 5,000 UNITS/ML 1ML VIAL SQ SCH (14:00)
[2017-10-20 15:28] VITALS: BP 128/92; PULSE 111; TEMP 99.3
--- NOTE | 2017-10-20 15:40 | DS ---
Physical Exam: SUBJECTIVE: Patient seen and examined No acute events overnight. Pt is distressed over number of blood draws taken yesterday. Explained to pt that we were concerned about his low Hgb. He states that his pain in his leg is well controlled, no other subjective complaints. OBJECTIVE: Vital Signs Period Temp Pulse Resp BP Sys/Cortez Pulse Ox Last 24 Hr 98.0 F-99.8 F 88-116 14-20 90-140/53-92 95 PHYSICAL EXAM GENERAL: The patient is awake, alert, and fully oriented, in no acute distress. HEENT: NC, AT NECK: Trachea midline, full range of motion, supple. LUNGS: Breath sounds equal, clear to auscultation bilaterally, no wheezes, no crackles, no accessory muscle use. HEART: Regular rate and rhythm, S1, S2 without murmur, rub or gallop. ABDOMEN: Soft, nontender, nondistended, normoactive bowel sounds, no guarding, no rebound, no hepatosplenomegaly, no masses. EXTREMITIES: left lateral leg is minimally tender to palpation around site of incision. NEUROLOGICAL: left leg has normal sensation and strength LABS Laboratory Results - last 24 hr 10/19/17 10/19/17 10/20/17 17:00 23:54 08:15 WBC 6.9 6.9 RBC 2.27 L 2.16 L Hgb 7.8 L 7.5 L Hct 23.6 L 22.5 L MCV 103.9 H 104.4 H MCH 34.5 H 34.6 H MCHC 33.2 33.1 RDW 14.6 14.3 Plt Count 262 237 MPV 8.4 8.5 Sodium Potassium Chloride Carbon Dioxide Anion Gap BUN Creatinine Creat Clearance w eGFR Random Glucose Calcium Total Bilirubin AST ALT Alkaline Phosphatase Total Protein Albumin Blood Type O POSITIVE Antibody Screen Negative Crossmatch See Detail 10/20/17 08:15 WBC RBC Hgb Hct MCV MCH MCHC RDW Plt Count MPV Sodium 141 Potassium 3.3 L Chloride 107 Carbon Dioxide 25 Anion Gap 9 BUN 6 L Creatinine 1.0 Creat Clearance w eGFR > 60 Random Glucose 96 Calcium 8.3 L Total Bilirubin 0.5 AST 32 ALT 19 D Alkaline Phosphatase 64 Total Protein 5.6 L Albumin 2.1 L Blood Type Antibody Screen Crossmatch XR-femur : left proximal femoral shaft fracture HOSPITAL COURSE: Date of Admission:10/16/17 Date of Discharge: 10/20/17 67M w/ hx of gout and alcohol abuse who presented with left hip pain and inability to move left leg s/p mechanical fall, and was found to have a proximal femur fracture. Pt was treated by orthopedic surgery with an ORIF w/ intramedullary gamma nail, pain control, and physical therapy. After the procedure, the pt was found to be anemic with a hemoglobin of 7.7. A CBC was repeated twice showing that the hemoglobin was stable, and there was no sign of a hematoma in his left thigh or hip or any other obvious source of bleeding. He was given one unit of PRBCs. Due to his alcohol use, pt was given a librium taper. Today, pt is afebrile, normotensive, without subjective complaints, and is stable for discharge to a [facility]. Pt instructed to follow up with his PCP and orthopedic surgery. -Henok Solis MD PGY1 Minutes to complete discharge: 37 Discharge Summary Reason For Visit: FRACTURE OF PROXIMAL END OF FEMUR Current Active Problems Fracture, proximal femur (Acute) Alcohol abuse (Chronic) Condition: Stable - Instructions Diet, Activity, Other Instructions: You presented to the hospital after falling and were found to have a left proximal femur fracture. You were treated with an orthopedic procedure called an ORIF with a intramedullary gamma nail placement, given pain control, IV fluids, and placed on a librium taper for your alcohol use. You also developed a low hemoglobin which is a marker of your blood level, so you were given a unit of blood to increase it. Followups: 1. Follow up with Dr. Aiken in one week. 2. Follow up with orthopedic surgery, Dr. Gómez, in one week. Continue your physical therapy. Decrease your alcohol intake to prevent cirrhosis of your liver, pancreatitis, and many other medical problems. If you develop any chest pain or shortness of breath or any other concerning symptoms, return to the ED. Referrals: Jude Aiken MD [Staff Physician] - STAFF,NOT ON [Primary Care Provider] - Christ Gómez MD [Staff Physician] - Disposition: INTERMEDIATE FACILITY - Home Medications Comprehensive Discharge Medication List: Ambulatory Orders Acetaminophen [Tylenol .Regular Strength -] 325 mg PO Q4H PRN tablet 10/20/17 Folic Acid - 1 mg PO DAILY tablet 10/20/17 Heparin - 5,000 unit SQ TID vial 10/20/17 Oxycodone HCl [Roxicodone -] 5 mg PO Q4H PRN #18 tablet MDD 30 10/20/17 Thiamine HCl [Vitamin B1 -] 100 mg PO DAILY tablet 10/20/17 This patient is new to me today: No Emergency Visit: Yes ED Registration Date: 10/16/17 Care time: The patient presented to the Emergency Department on the above date and was hospitalized for further evaluation of their emergent condition. Critical Care patient: No - Discharge Referral Referred to [facility] Med P.C.: No
--- NOTE | 2017-10-20 20:13 | PN ---
Teaching Attending Note Name of Resident: Henok Solis ATTENDING PHYSICIAN STATEMENT I saw and evaluated the patient. I reviewed the resident's note and discussed the case with the resident. I agree with the resident's findings and plan as documented. SUBJECTIVE: Patient is feeling better with no acute distress.No fever or chills, no shortness of breath. OBJECTIVE: Vital Signs Temperature 99.3 F 10/20/17 13:53 Pulse Rate 111 H 10/20/17 13:53 Respiratory Rate 15 10/20/17 13:53 Blood Pressure 128/92 10/20/17 13:53 O2 Sat by Pulse Oximetry (%) 95 10/19/17 21:00 CBCD WBC 6.9 K/mm3 (4.0-10.0) 10/20/17 08:15 RBC 2.16 M/mm3 (4.00-5.60) L 10/20/17 08:15 Hgb 7.5 GM/dL (11.7-16.9) L 10/20/17 08:15 Hct 22.5 % (35.4-49) L 10/20/17 08:15 MCV 104.4 fl (80-96) H 10/20/17 08:15 MCHC 33.1 g/dl (32.0-35.9) 10/20/17 08:15 RDW 14.3 % (11.9-15.9) 10/20/17 08:15 Plt Count 237 K/MM3 (134-434) 10/20/17 08:15 MPV 8.5 fl (7.5-11.1) 10/20/17 08:15 CMP Sodium 141 mmol/L (136-145) 10/20/17 08:15 Potassium 3.3 mmol/L (3.5-5.1) L 10/20/17 08:15 Chloride 107 mmol/L (98-107) 10/20/17 08:15 Carbon Dioxide 25 mmol/L (21-32) 10/20/17 08:15 Anion Gap 9 (8-16) 10/20/17 08:15 BUN 6 mg/dL (7-18) L 10/20/17 08:15 Creatinine 1.0 mg/dL (0.7-1.3) 10/20/17 08:15 Creat Clearance w eGFR > 60 (>60) 10/20/17 08:15 Random Glucose 96 mg/dL (74-106) 10/20/17 08:15 Calcium 8.3 mg/dL (8.5-10.1) L 10/20/17 08:15 Total Bilirubin 0.5 mg/dL (0.2-1.0) 10/20/17 08:15 AST 32 U/L (15-37) 10/20/17 08:15 ALT 19 U/L (12-78) D 10/20/17 08:15 Alkaline Phosphatase 64 U/L (45-117) 10/20/17 08:15 Total Protein 5.6 g/dl (6.4-8.2) L 10/20/17 08:15 Albumin 2.1 g/dl (3.4-5.0) L 10/20/17 08:15 Home Medications Medication Instructions Recorded Acetaminophen [Tylenol .Regular 325 mg PO Q4H PRN tablet 10/20/17 Strength -] Folic Acid - 1 mg PO DAILY tablet 10/20/17 Heparin - 5,000 unit SQ TID vial 10/20/17 Oxycodone HCl [Roxicodone -] 5 mg PO Q4H PRN #18 tablet MDD 30 10/20/17 Thiamine HCl [Vitamin B1 -] 100 mg PO DAILY tablet 10/20/17 PE: per resident's note ASSESSMENT AND PLAN: Patient is a 67 y/o gentleman with h/o Gout , alcohol dependence and no cardiac history who presented with L thigh pain after a fall. and was found to have L femur Fx . # Acute Left femur Fx: s/p ORIF , continue pain med. percocet prn # Alcohol dependence ,patient has no signs of withdrawal completed Librium protocol today. # Asymptomatic bacteruria , no indication for treatment with Abx # Acute hypokalemia gien a dose of KDUR 40meq discharge patient to rehab.
== END 2017-10-20 18:14 | DRG 481 ==
LOC: JER 21:48 → JERBED 10-16 00:50 → J5S 10-16 03:09 → J6S 10-17 22:14
PROVIDERS: ADMIT Internal Medicine; ATTEND Internal Medicine
PROC: 0QS706Z Reposition Left Upper Femur with Intramedullary Internal Fixation Device, Open Approach (ICD-10-PCS; principal; 2017-10-16)
PROC: 0QS704Z Reposition Left Upper Femur with Internal Fixation Device, Open Approach (ICD-10-PCS; 2017-10-16)
DX: S72.8X2A Other fracture of left femur, initial encounter for closed fracture (principal); D62 Acute posthemorrhagic anemia; F10.20 Alcohol dependence, uncomplicated; M1A.9XX0 Chronic gout, unspecified, without tophus (tophi); W00.2XXA Other fall from one level to another due to ice and snow, initial encounter; Y93.29 Activity, other involving ice and snow; Y92.89 Other specified places as the place of occurrence of the external cause; Y99.8 Other external cause status; R82.71 Bacteriuria; D64.9 Anemia, unspecified; B95.7 Other staphylococcus as the cause of diseases classified elsewhere
CPT/HCPCS: 36415; 36430; 71010-TC; 73523-TC; 73552-TC-LT; 73560-TC-LT; 76000-TC; 80048; 80053; 80307; 81003; 81015; 83735; 84100; 85025; 85027; 85610; 85730; 86850; 86900; 86901; 86922; 87086; 87186; 93005; 93010; 94010; 94760; 97116-GP; 97161-GP; 99282-25; J1644; P9038; P9058